=== PATIENT | female | born 2005 | race Two or more races ===

== ENCOUNTER 2024-02-23 13:28 | Emergency (ER) | payer MEDICAID, SELFPAY ==
[2024-02-23 13:29] VITALS: BMI 23.4
--- NOTE | 2024-02-23 14:22 | PC.NURSE ---
pt did not answer when name was called and was not found outside.
--- NOTE | 2024-02-23 17:38 | PC.NURSE ---
called pt back, no answer at this time
--- NOTE | 2024-02-23 19:00 | PC.NURSE ---
NO ANSWER FOR CALL BACK TO MAIN ED
== END 2024-02-23 19:06 | disposition left against medical advice (07) ==
PROVIDERS: Emergency Provider Emergency Medicine
DX: Z53.21 Procedure and treatment not carried out due to patient leaving prior to being seen by health care provider (principal)

== ENCOUNTER 2024-10-12 10:33 | Outpatient (AMB) | payer MEDICAID, SELFPAY ==
[2024-10-12 10:49] VITALS: BP 110/73; PULSE 81; RESP 17; TEMP 36.6; O2SAT 98; BMI 30.7
--- NOTE | 2024-10-12 10:49 | AMB.OBINITIA ---
Vital Signs 10/12/24 10:49 Height 1.42 m Height Method Measured Weight 62.199 kg Weight Measurement Method Standing Scale BMI 30.7 BP 110/73 Blood Pressure Source Automatic Cuff Blood Pressure Location Right Upper Arm Position Sitting Respiration 17 Pulse 81 Pulse Source Monitor Temp 97.9 F Temp Source Temporal Artery Scan Pulse Oximetry (%) 98 Oxygen Delivery Method Room Air Allergies/Home Meds Allergies & Medications Allergies No Known Allergies Allergy (Verified 10/12/24 10:50) Medication Reconciliation folic acid 0.8 mg capsule 0.8 mg PO QDAY 10/12/24 [History Confirmed 10/12/24] vits no.126-ferrous fum 28 mg iron-folic acid 800 mcg tablet (Classic ) tab PO 10/12/24 [History Confirmed 10/12/24] Intake Visit Data Collection New Patient or Established: Established Patient (seen at [facility] within 3 years) Reason for Visit:: OBI Consent obtained for Telemed Visit: No Seen by Clinical Staff ONLY (RN/MA): No Pneumatic Jack Operator Required: No Do You Feel Safe at Home: Yes Authorities Contacted: N/A PCP or OBGYN visit in last 3 months: No Hx Now: Yes Are you currently on any form of Control: No Pain Present Currently: No Pain Scale Used: Cruz-Mathews/Numerical Pain scale:: 0 Smoking Status Smoking Status: Never smoker Questionnaires Covid-19 Vaccine Questionnaire Has patient been vacinated for Covid-19 Have you been vacinated for Covid-19: No PHQ-9 PHQ-2 Over the last 2 weeks, how often have you been bothered by any of the following problems? 1. Little interest or pleasure in doing things: not at all 2. Feeling down, depressed, or hopeless: not at all Total score: 0 PHQ-9 3. Trouble falling or staying asleep, or sleeping too much: Not at all 4. Feeling tired or having little energy: Not at all 5. Poor appetite or overeating: Not at all 6. Feeling bad about yourself - or that you are a failure or have let yourself or your family down: Not at all 7. Trouble concentrating on things, such as reading the newspaper or watching television: Not at all 8. Moving or speaking so slowly that other people could have noticed? - Or the opposite - being so fidgety or restless that you have been moving around a lot more than usual: not at all 9. Thoughts that you would be better off or of hurting yourself in some way: Not at all Total score: 0 If you checked off any problems, how difficult have these problems made it for you to do your work, take care of things at home, or get along with other people?: not difficult at all Source: Developed by Drs. Ronnie Monzon, Shayy Acuña, Leonardo Marsh and colleagues, with an educational guy from [employer]. Social History Tobacco History Smoking Status: Never smoker Alcohol History Alcohol Intake: Never Domestic Abuse History Do You Feel Safe at Home: Yes History of Present Illness HPI Narrative This is a 19-year-old 2 para 1 admitted for OBI. Patient reports unplanned . She denies any leaking, bleeding, or cramps at this time. Her last. Was June 22, 2024. This gives a due date March 29, 2025. menses are q month. Her first was uncomplicated. Patient denies surgeries. Denies any existence of chronic illness. She denies social habits. She is very happy about the OB Initial Visit OB Flowsheet OB Flowsheet Initial Weight: Not Recorded Date <del>?</del> EGA Weight BP Alb Glu CTX Pres Fundal ht FHR Mov Dilation Station Effacement Hx Notes Visit Note 10/12/24 <del>?</del> 16w 0d 62.199 kg 110/73 absent unknown 15 145 active 19-year-old 2 para 1 for OBI. No OB complaints. Reports slight movement. Denies leaking, denies bleeding, denies contractions. Her last period was June 22, 2024. This gave a due date March 29, 2025. OB panel, NIPT, AFP, and A1c today. Discussed labor precautions. Schedule with MFM for anatomy scan. SAB precautions. Return in 4 weeks OB check Menstrual History Menstrual reliability: definite Flow: normal Menstrual regularity: regular Monthly: Yes Age at menarche: 11 On control pills at conception: No Details: PATIENT HAD NEXPLANON REMOVED BEFORE OB History : 2 Para: 1 Hx # Pregnancies: 0 Hx Total # of Abortions (Spontaneous & Elective): 0 # of Living Children: 1 Delivery History 1st : Child's name: WILLEM date: 11/07/19 sex: female Gestational age at delivery (weeks): 40 Delivery type: vaginal History of depression before or after : No Additional comments: PATIENT DOES NOT REMEMBER WEIGHT OF CHILD Infection History & Risk Evaluation History of STDs: none HIV risk evaluation: low risk Hepatitis B risk evaluation: low risk Patient or partner has history of Genital Herpes: No Genetic Screening & History Genetic Screening/Teratology Counseling - Includes patient, baby's father, or anyone in either family with: 1. Patient's age 35 years or older as of estimated date of delivery: No 2. Thalassemia (Greenlandic, Serbian, Mediterranean, or Background); MCV less than 80: No 3. Neural Tube Defect (Meningomyelocele, Spina Bifida, or Anencephaly): No 4. Congenital Heart Defect: No 5. Down Syndrome: No 6. Ketan-Sachs (Ashkenazi Orthodox, Cajun, Mauritanian [place]): No 7. Bety Disease (Ashkenazi Orthodox): No 8. Familial Dysautonomia (Ashkenazi Orthodox): No 9. Sickle Cell Disease or Trait (): No 10. Hemophilia or other blood disorders: No 11. Muscular Dystrophy: No 12. Cystic Fibrosis: No 13. [place]'s Chorea: No 14. Mental Retardation/Autism: No 15. Other inherited genetic or chromosomal disorder: No 16. Maternal Metabolic Disorder (EG,TYPE 1 Diabetes, PKU): No 17. Patient or baby's father had a child with defects not listed above: No 18. Recurrent loss or a stillbirth: No 19. Medications (including supplements, vitamins, herbs or otc drugs)/illicit/recreational drugs/alcohol since last menstrual period: No 20. Any other: No Infection History 1. Live with someone with TB or exposed to TB: No 2. Rash or viral illness since last menstrual period: No 3. Hepatitis B,C: No Other (see comments) Source: [employer] Review of Systems Review of Systems Systems Reviewed: All systems reviewed, normal except as documented Exam General Limitations: no limitations General Appearance: alert, in no apparent distress, comfortable, cooperative, healthy appearing, well developed and well groomed Head Head exam: atraumatic, normocephalic and normal inspection ENT ENT exam: Present normal exam, normal oropharynx and mucous membranes moist Resp Respiratory exam: Present normal lung sounds bilaterally Card Cardiovascular exam: Present regular rate, normal rhythm and normal heart sounds Abdominal Abdominal exam: Present soft and normal bowel sounds Psych Psychiatric exam: Present normal affect and normal mood Office Procedures OB Clinic LOC & Office Proc's Nursing/Assessment Patient Status: Established Patient OB Clinic Nursing Assessment: Medication Reconciliation, Update PMH in EMR and Vital Signs OB Clinic Coordination of Care: Complex Care and Chronic Disease 1-5, Consent,records obtained, informed consent and Lab and Imaging orders Special Needs: Heart tones Established Patient Charge Established Patient Point Assignment: 105 Established Patient Point Charge: EP Level 3 (80-115) Assessment & Plan Diagnosis / Problem List (1) Encounter for supervision of high risk in second trimester, antepartum: Status: Acute Plan Schedule anatomy scan with Dr. Marquez. OB panel with NIPT and AFP today. SAB precautions discussed. Increase fluids. Continue prenatals. ER precautions discussed return in 4 weeks OB check Additional Plan Follow Up: 4 Weeks (obc)
== END 2024-10-12 11:13 | disposition home or self-care (01) ==
LOC: HODSOBC 10:33
PROVIDERS: Supervising Provider Advanced Practice Midwife; Visit Provider Advanced Practice Midwife
DX: O09.92 Supervision of high risk pregnancy, unspecified, second trimester (principal); Z3A.16 16 weeks gestation of pregnancy
CPT/HCPCS: 99213; G0463

== ENCOUNTER 2024-10-28 08:10 | Emergency (ER) | payer MEDICAID, SELFPAY ==
[2024-10-28 08:21] VITALS: BP 123/85; PULSE 94; RESP 17; TEMP 37.2; O2SAT 98
--- NOTE | 2024-10-28 08:23 | XR_ITS ---
Examination: Complete OB ultrasound greater than 14 weeks Date and time of exam: October 28, 2024, 0837 hours INDICATIONS: Pelvic and back pain beginning today. Findings: Viable intrauterine single fetus with single amniotic sac presentation cephalic. Cardiac motion 155 BPM. Placenta posterior grade 2. Umbilical cord insertion 3 vessel seen. Amniotic fluid index 10.9 cm Cervix 4.4 cm Ovaries obscured by bowel gas. Composite estimated gestational age based on BPD, head circumference, abdominal circumference, femur length is 18 weeks 1 day Estimated weight 218 g. Survey of intracranial anatomy, spinal anatomy, abdominal anatomy, four-chamber heart performed with no abnormalities identified. Impression: Viable intrauterine gestation cephalic presentation.
[2024-10-28 09:09] LABS: Collection Type, Urine Clean Catch; RBC,Urine 0 /hpf (0-3)
[2024-10-28 09:27] LABS: Bacteria,Urine Rare; Bilirubin,Urine Negative (Negative); Blood,Urine Negative (Negative); Color,Urine Lt-Yellow (Lt Yel-Yel); Glucose, Urine Negative (Negative); Ketones,Urine Negative (Negative); Leukocyte Esterase,Urine Positive (Negative); Nitrite,Urine Negative (Negative); PH,Urine 6.5 (5.0-7.0); Protein,Urine Negative (Neg - Trace); Specific Gravity,Urine 1.016 (1.001-1.035); Squamous Epithelial Cell,Urine 4 /hpf (0-5); Urobilinogen,Urine Negative mg/dL (0.0-1.0); WBC,Urine 7 /hpf (0-5)
[2024-10-28 09:31] LABS: Clarity,Urine Hazy (Clear/Hazy)
[2024-10-28 09:49] LABS: Basophils # (Auto) 0.0 Thou/mm3 (0.0-0.2); Basophils % (Auto) 0 % (0-2.5); Eosinophils # (Auto) 0.1 Thou/mm3 (0.0-0.5); Eosinophils % (Auto) 1 % (0-10); Hematocrit 34.1 % (36.0-46.0); Hemoglobin 12.1 g/dL (12.0-16.0); Immature Granulocytes Auto 0.05 Thou/mm3 (0.00-0.00); Lymphocytes # (Auto) 1.5 Thou/mm3 (1.0-4.8); Lymphocytes % (Auto) 15 % (10-50); Mean Corpuscular HGB Conc 35.5 g/dl (31.0-37.0); Mean Corpuscular Hemoglobin 29.8 pg (25.0-35.0); Mean Corpuscular Volume 84 fL (80-100); Monocytes # (Auto) 0.5 Thou/mm3 (0.0-0.8); Monocytes % (Auto) 4 % (0-12); Neutrophils # (Auto) 8.2 Thou/mm3 (1.8-7.7); Neutrophils % (Auto) 80 % (37-80); Nucleated Red Blood Cell # 0.00 Thou/mm3 (0.00-0.00); Nucleated Red Blood Cell % 0 /100 WBC (0); Platelet Count 261 Thou/mm3 (140-440); RDW Standard Deviation 42.3 fL (36.4-46.3); Red Blood Count 4.06 Miln/mm3 (4.00-5.20); White Blood Count 10.4 Thou/mm3 (4.5-11.0)
[2024-10-28 10:29] LABS: Alanine Aminotransferase 19 U/L (10-49); Albumin, Serum 3.7 gm/dL (3.5-5.0); Albumin/Globulin Ratio 1.5 (1.2-2.2); Alkaline Phosphatase 88 U/L (46-116); Amylase 122 U/L (30-118); Anion Gap 9 (7-16); Aspartate Amino Transferase 19 U/L (0-34); BUN/Creatinine Ratio 10 Ratio (12-20); Bilirubin,Total 0.3 mg/dL (0.3-1.2); Blood Urea Nitrogen < 5 mg/dL (9-23); Calcium 8.9 mg/dL (8.3-10.6); Calcium (Corrected) 9.1 mg/dL (8.5-10.1); Carbon Dioxide 24.3 mMol/L (20.0-31.0); Chloride 106 mMol/L (98-107); Creatinine (Component) 0.5 mg/dL (0.6-1.3); Globulin 2.5 gm/dL (2.3-3.5); Glucose 92 mg/dL (74-106); Osmolality,Calculated 274 (275-295); Potassium 4.2 mMol/L (3.4-5.1); Sodium 139 mMol/L (136-145); Total Protein 6.2 gm/dL (5.7-8.2); eGFR > 60 See Note
[2024-10-28 11:31] LABS: Beta HCG,Quantitative 49995 mIU/mL (<5.0); Lipase 25 U/L (12-53)
--- NOTE | 2024-10-28 12:53 | PD.EDABDPN ---
ED Abdominal Pain RME/HPI General Chief Complaint: Abdominal Pain Stated complaint: PAIN IN BACK/ABD; PREG 18WKS Time seen by provider: 10/28/24 08:15 Arrival date/time: 10/28/24 08:10 19-year-old female with no significant medical problems A0 approximately 18 weeks presents to the emergency department today for complaints of lower back pain and pelvic pain patient reports no vaginal bleeding no nausea no vomiting no diarrhea. Limitations: no limitations Related Data Home Medications ?Medication ?Instructions ?Recorded ?Confirmed folic acid 0.8 mg capsule 0.8 mg PO QDAY 10/12/24 10/12/24 vits no.126-ferrous fum tab PO 10/12/24 10/12/24 28 mg iron-folic acid 800 mcg tablet (Classic ) Previous Rx's ?Medication ?Instructions ?Recorded acetaminophen 325 mg capsule 650 mg (2 x 325 mg) PO Q8HR PRN 10/28/24 fever or pain #30 caps cephalexin 500 mg capsule 500 mg PO BID 5 days #10 caps 10/28/24 Allergies Allergy/AdvReac Type Severity Reaction Status Date / Time No Known Allergies Allergy Verified 10/12/24 10:50 Review of Systems Review of Systems Systems Reviewed: All systems reviewed, normal except as documented Constitutional Constitutional: Reports system reviewed and no additional complaints, except as documented, Denies fever(s) and Denies headache(s) Eyes Eyes: Reports system reviewed and no additional complaints, except as documented and Denies blurry vision ENT Ears, Nose, Mouth, and Throat: Reports system reviewed and no additional complaints, except as documented, Denies headache(s), Denies nasal congestion and Denies nasal discharge Cardiovascular Cardiovascular: Reports system reviewed and no additional complaints, except as documented, Denies chest pain and Denies dyspnea Respiratory Respiratory: Reports system reviewed and no additional complaints, except as documented, Denies chest congestion, Denies cough and Denies dyspnea Gastrointestinal Gastrointestinal: Reports system reviewed and no additional complaints, except as documented and Denies abdominal pain Genitourinary Genitourinary: Reports system reviewed and no additional complaints, except as documented and Denies abnormal vaginal bleeding Musculoskeletal Musculoskeletal: Reports system reviewed and no additional complaints, except as documented and Reports back pain Integumentary/Breasts Skin/Breast: Reports system reviewed and no additional complaints, except as documented and Denies rash Neurologic Neurologic: Reports system reviewed and no additional complaints, except as documented, Reports as per HPI and Denies headache(s) Past Medical History Social History SMOKING STATUS: Never smoker SUBSTANCE USE: does not use ED Exam General Limitations: Present no limitations General appearance: Present alert and in no apparent distress Head Head exam: Present atraumatic, normocephalic and normal inspection Eye Eye exam: Present normal appearance, PERRL and EOMI; Absent conjunctival injection ENT ENT exam: Present normal exam, normal oropharynx and mucous membranes moist Neck Neck exam: Present normal inspection, full ROM and trachea midline Chest Chest inspection: Present normal inspection and symmetric chest wall rise Respiratory Respiratory exam: Present normal lung sounds bilaterally; Absent respiratory distress Cardiovascular Cardiovascular exam: Present regular rate, normal rhythm and normal heart sounds Abdominal Exam Abdominal exam: Present soft and normal bowel sounds; Absent distention, tenderness, guarding, rebound or rigidity Extremities Exam Extremities exam: Present normal inspection and full ROM Back Exam Back exam: Present normal inspection and full ROM Neurological Exam Neurological exam: Present alert, oriented X3 and CN II-XII intact Psychiatric Psychiatric exam: Present normal affect and normal mood Skin Skin exam: Present warm, dry, intact and normal color Course Quality Measures none Orders Category Date Time Status US OB >= 14 weeks Fetus Stat Exams 10/28/24 08:23 Completed ABO/RH Type Stat Lab 10/28/24 09:37 Completed Amylase Stat Lab 10/28/24 09:37 Completed Beta HCG,Quantitative Stat Lab 10/28/24 09:37 Completed CBC Stat Lab 10/28/24 09:37 Completed Comprehensive Metabolic Panel Stat Lab 10/28/24 09:37 Completed Lipase Stat Lab 10/28/24 09:37 Completed UA [Urinalysis] Stat Lab 10/28/24 08:42 Completed Vital Signs Vital signs: Vital Signs Temperature 99.0 F 10/28/24 08:21 Pulse Rate 94 10/28/24 08:21 Respiratory Rate 17 10/28/24 08:21 Blood Pressure 123/85 H 10/28/24 08:21 Pulse Oximetry (%) 98 10/28/24 08:21 Oxygen Delivery Method Room Air 10/28/24 08:21 O2 saturation 98% r.a wnl Abdominal Pain MDM MDM Narrative MDM Narrative:: 19-year-old female with no significant medical problems A0 approximately 18 weeks presents to the emergency department today for complaints of lower back pain and pelvic pain patient reports no vaginal bleeding no nausea no vomiting no diarrhea. On exam patient well-appearing patient does not appear ill or toxic no acute stress Lab work and imaging obtained no acute emergent findings noted As patient is complaining of lower back pain and patient does have leukocyte esterase with bacteria in her urine patient be treated with course of antibiotics Patient discharged home in no distress to follow-up with primary care doctor in the next 24 to 48 hours and for any worsening symptoms to return to the ER immediately Patient data External records reviewed:: [facility] previous records Clinical information provided by:: patient Social determinants that could affect healthcare access:: none Patient has the following chronic illnesses:: None How is presenting disease/condition affected by chronic disease/condition?: no chronic disease Evaluation data The following diagnostics were reviewed and interpreted by me:: lab results and radiology exam(s) Lab and/or radiology exams considered but not ordered:: Labs radiology obtained Interpretation Summary: Reviewed by me Medications / Prescriptions Medications or Prescriptions considered but not ordered:: Given Medication administrations:: Given Consultations Consultation(s) initiated? (list below): No Diagnosis Differential diagnosis abdominal pain: abdominal pain, acute appendicitis, pancreatitis and small bowel obstruction Most likely diagnosis given after review of the tests above:: Abdominal pain Admission Indicated Admission indicated?: not indicated Admission Request Was there a request for admission?: No Disposition Plan Disposition Plan: Discharge Discharge Attestation Discharge Attestation: The patient and all family members were given an opportunity to ask questions and understood the discharge instructions. Discharge instructions specifically effects, indications for sooner follow up or return to the emergency department, and the expected course of current diagnosis. Patient condition: Stable Discharge Plan Plan Patient Disposition: HOME (Self Care) Discharge Disposition comment: Stable Prescriptions/Referrals Prescriptions/Med Rec: New cephalexin 500 mg capsule 500 mg PO BID 5 Days Qty: 10 0RF acetaminophen 325 mg capsule 650 mg PO Q8HR PRN (Reason: fever or pain) Qty: 30 0RF No Action Classic 28 mg iron- 800 mcg tablet PO folic acid 0.8 mg capsule 0.8 mg PO QDAY Referrals: Kahlil Livingston MD [Primary Care Provider, Family Practice] - 10/30/24 Problem List Clinical Impression: Back pain affecting Patient/Caregiver Discharge Instructions Education Materials: Back Safety Bed Additional Instructions: Please follow-up with WET PRIMER POWDER BLENDER as discussed for worsening symptoms return immediately Print Language: Yakut Stand Alone Forms: Hermelinda Award Info., Patient Portal Info Letter PA/FRONT LOAD TRASH TRUCK DRIVER Supervising Physician PA/FRONT LOAD TRASH TRUCK DRIVER Supervising Physician: Dr. mendoza
== END 2024-10-28 13:29 | disposition home or self-care (01) ==
PROVIDERS: Nurse Practitioner Primary Care; Emergency Provider Emergency Medicine; PCP Family Medicine
DX: O26.892 Other specified pregnancy related conditions, second trimester (principal); M54.50 Low back pain, unspecified; R10.2 Pelvic and perineal pain; Z3A.18 18 weeks gestation of pregnancy
CPT/HCPCS: 36415; 76805; 80053; 81001; 82150; 83690; 84702; 85025; 86900; 86901; 99283

== ENCOUNTER 2024-11-16 15:04 | Outpatient (AMB) | payer MEDICAID, SELFPAY ==
[2024-11-16 16:07] VITALS: BP 108/70; PULSE 94; RESP 16; TEMP 36.2; O2SAT 98; BMI 31.1
--- NOTE | 2024-11-16 16:07 | AMB.OBVISIT ---
Vital Signs 11/16/24 16:07 Height 1.42 m Height Method Stated Weight 62.766 kg Weight Measurement Method Standing Scale BMI 31.1 BP 108/70 Blood Pressure Source Automatic Cuff Blood Pressure Location Left Upper Arm Position Sitting Respiration 16 Pulse 94 Pulse Source Monitor Temp 97.2 F Temp Source Oral Pulse Oximetry (%) 98 Oxygen Delivery Method Room Air Allergies/Home Meds Allergies & Medications Allergies No Known Allergies Allergy (Verified 11/16/24 16:08) Medication Reconciliation folic acid 0.8 mg capsule 0.8 mg PO QDAY 10/12/24 [History Confirmed 11/16/24] vits no.126-ferrous fum 28 mg iron-folic acid 800 mcg tablet (Classic ) tab PO 10/12/24 [History Confirmed 11/16/24] acetaminophen 325 mg capsule 650 mg (2 x 325 mg) PO Q8HR PRN fever or pain #30 caps 10/28/24 [Rx Confirmed 11/16/24] Intake Visit Data Collection New Patient or Established: Established Patient (seen at [facility] within 3 years) Reason for Visit:: OBC Seen by Clinical Staff ONLY (RN/MA): No Frame Pulley Mortising Machine Operator Required: No Do You Feel Safe at Home: Yes Authorities Contacted: N/A PCP or OBGYN visit in last 3 months: Yes Date of Last PCP or OBGYN visit: 10/28/24 Hx Now: Yes Are you currently on any form of Control: No Pain Present Currently: No Pain Scale Used: Cruz-Mathews/Numerical Pain scale:: 0 Smoking Status Smoking Status: Never smoker Questionnaires Covid-19 Vaccine Questionnaire Has patient been vacinated for Covid-19 Have you been vacinated for Covid-19: Yes PHQ-9 PHQ-2 Over the last 2 weeks, how often have you been bothered by any of the following problems? 1. Little interest or pleasure in doing things: not at all 2. Feeling down, depressed, or hopeless: not at all Total score: 0 PHQ-9 3. Trouble falling or staying asleep, or sleeping too much: Not at all 4. Feeling tired or having little energy: Not at all 5. Poor appetite or overeating: Not at all 6. Feeling bad about yourself - or that you are a failure or have let yourself or your family down: Not at all 7. Trouble concentrating on things, such as reading the newspaper or watching television: Not at all 8. Moving or speaking so slowly that other people could have noticed? - Or the opposite - being so fidgety or restless that you have been moving around a lot more than usual: not at all 9. Thoughts that you would be better off or of hurting yourself in some way: Not at all Total score: 0 If you checked off any problems, how difficult have these problems made it for you to do your work, take care of things at home, or get along with other people?: not difficult at all Source: Developed by Drs. Ronnie Monzon, Shayy Acuña, Leonardo Marsh and colleagues, with an educational guy from [employer]. Depression screen completed yes Social History Tobacco History Smoking Status: Never smoker Alcohol History Alcohol Intake: Never Domestic Abuse History Do You Feel Safe at Home: Yes Care OB Visit Log OB Flowsheet Initial Weight: Not Recorded Date <del>?</del> EGA Weight BP Alb Glu CTX Pres Fundal ht FHR Mov Dilation Station Effacement Hx Notes Visit Note 10/12/24 <del>?</del> 16w 0d 62.199 kg 110/73 absent unknown 15 145 active 19-year-old 2 para 1 for OBI. No OB complaints. Reports slight movement. Denies leaking, denies bleeding, denies contractions. Her last period was June 22, 2024. This gave a due date March 29, 2025. OB panel, NIPT, AFP, and A1c today. Discussed labor precautions. Schedule with [facility] for anatomy scan. SAB precautions. Return in 4 weeks OB check 11/16/24 <del>?</del> 21w 0d 62.766 kg 108/70 absent unknown 23 145 active Maternal- medicine pending. Fetus very active. Denies any existence of contractions. Denies leaking, denies bleeding, Discussed labs. Follow-up in maternal- medicine appointment. Discussed labor precautions. Return in 4 weeks OB check JACQUES Calculator Estimated Delivery Date Method Current WG Current Estimate 03/29/25 LMP (Certain) 21w 0d Notes Visit Date: 11/16/24 Last Updated by: Acacia Nolasco CNM 10/12: O+,abs-, rpr;;nr, rub imm, hbsag-,hiv-, HC-, GC/CT-, , NIPT-, AFP-, SMA-UT-,UA- Visit Date: 10/12/24 Last Updated by: Acacia Nolasco CNM 19 y0 . lmp: 06/22/24. EDC. 03/29/25 Office Procedures OBC Clinic LOC & Office Proc's Nursing/Assessment Patient Status: Established Patient OB Clinic Nursing Assessment: Medication Reconciliation, Update PMH in EMR and Vital Signs OB Clinic Coordination of Care: Education Complex Pt/Fam, Consent,records obtained, informed consent, Lab and Imaging orders, Results/Orders obtained and Staff clarify orders Special Needs: Heart tones Established Patient Charge Established Patient Point Assignment: 115 Established Patient Point Charge: EP Level 3 (80-115) Assessment & Plan Diagnosis / Problem List (1) Encounter for supervision of high risk in second trimester, antepartum: Status: Acute Plan Reviewed labs. Discussed labor precautions. Follow-up on maternal- medicine appointment. And return in 4 weeks OB check Additional Plan Follow Up: 4 Weeks (obc)
== END 2024-11-16 16:46 | disposition home or self-care (01) ==
LOC: HODSOBC 15:04
PROVIDERS: Supervising Provider Advanced Practice Midwife; Visit Provider Advanced Practice Midwife
DX: O09.92 Supervision of high risk pregnancy, unspecified, second trimester (principal); Z3A.21 21 weeks gestation of pregnancy
CPT/HCPCS: 99213; G0463

== ENCOUNTER 2024-12-17 08:54 | Outpatient (AMB) | payer MEDICAID, SELFPAY ==
[2024-12-17 08:56] VITALS: PULSE 95; RESP 18; TEMP 36.6; O2SAT 98; BMI 33.1
--- NOTE | 2024-12-17 08:56 | OBCLNT_ITS ---
Vital Signs 12/17/24 08:56 Height 1.42 m Height Method Stated Weight 66.905 kg Weight Measurement Method Standing Scale BMI 33.1 Blood Pressure Source Automatic Cuff Blood Pressure Location Left Upper Arm Position Sitting Respiration 18 Pulse 95 Pulse Source Monitor Temp 98 F Temp Source Oral Pulse Oximetry (%) 98 Oxygen Delivery Method Room Air Allergies/Home Meds Allergies & Medications Allergies No Known Allergies Allergy (Verified 12/17/24 09:07) Medication Reconciliation vits no.126-ferrous fum 28 mg iron-folic acid 800 mcg tablet (Classic ) tab PO 10/12/24 [History Confirmed 12/17/24] folic acid 0.8 mg capsule 0.8 mg PO QDAY #60 caps 12/17/24 [Rx] Intake Visit Data Collection New Patient or Established: Established Patient (seen at [facility] within 3 years) Reason for Visit:: CARE Seen by Clinical Staff ONLY (RN/MA): No Health Careers Instructor Required: Yes Do You Feel Safe at Home: Yes Authorities Contacted: N/A PCP or OBGYN visit in last 3 months: Yes Hx Now: Yes Are you currently on any form of Control: No Pain Present Currently: No Pain Scale Used: Cruz-Mathews/Numerical Pain scale:: 0 Smoking Status Smoking Status: Never smoker Immunizations Flu Vaccine in the Last 12 Months: Yes Flu Vaccine Exclusion Criteria: Already Received Questionnaires Covid-19 Vaccine Questionnaire Has patient been vacinated for Covid-19 Have you been vacinated for Covid-19: No PHQ-9 PHQ-2 Over the last 2 weeks, how often have you been bothered by any of the following problems? 1. Little interest or pleasure in doing things: not at all 2. Feeling down, depressed, or hopeless: not at all Total score: 0 PHQ-9 3. Trouble falling or staying asleep, or sleeping too much: Not at all 4. Feeling tired or having little energy: Not at all 5. Poor appetite or overeating: Not at all 6. Feeling bad about yourself - or that you are a failure or have let yourself or your family down: Not at all 7. Trouble concentrating on things, such as reading the newspaper or watching television: Not at all 8. Moving or speaking so slowly that other people could have noticed? - Or the opposite - being so fidgety or restless that you have been moving around a lot more than usual: not at all 9. Thoughts that you would be better off or of hurting yourself in some way: Not at all Total score: 0 Source: Developed by Drs. Ronnie Monzon, Shayy Acuña, Leonardo Marsh and colleagues, with an educational guy from [employer]. Depression screen completed yes Social History Living Situation History Marital Status: Lives With: Family Housing: House Tobacco History Smoking Status: Never smoker Second Hand Smoke Exposure: No Alcohol History Alcohol Intake: Never Domestic Abuse History Do You Feel Safe at Home: Yes Care OB Visit Log OB Flowsheet Initial Weight: Not Recorded Date -?-?-?-?-?-?-?-?-?-?-?-?- EGA Weight BP Alb Glu CTX Pres Fundal ht FHR Mov Dilation Station Effacement Hx Notes Visit Note 10/12/24 -?-?-?-?-?-?-?-?-?-?-?-?- 16w 0d 62.199 kg 110/73 absent unknown 15 145 active 19-year-old 2 para 1 for OBI. No OB complaints. Reports slight movement. Denies leaking, denies bleeding, denies contractions. Her last period was June 22, 2024. This gave a due date March 29, 2025. OB panel, NIPT, AFP, and A1c today. Discussed labor precautions. Schedule with MFM for anatomy scan. SAB precautions. Return in 4 weeks OB check 11/16/24 -?-?-?-?-?-?-?-?-?-?-?-?- 21w 0d 62.766 kg 108/70 absent unknown 23 145 active Maternal- medicine pending. Fetus very active. Denies any existence of contractions. Denies leaking, denies bleeding, Discussed labs. Follow-up in maternal- medicine appointment. Discussed labor precautions. Return in 4 weeks OB check 12/17/24 -?-?-?-?-?-?-?-?-?-?-?-?- 25w 3d 66.905 kg absent unknown 26 135 act sharad MFM appointment is January 18. Reports movement. Patient had a general physical at [facility].. Her vitamin D is low and she was given vitamin D supplement. Patient positive antibodies for hepatitis A. Hep B and hep C were nonreactive and her CMP normal as well. Reports movement. Denies leaking bleeding contractions. No second trimester discomforts Third trimester labs today follow-up [facility] January 18. Discussed labor precautions increase fluids good handwashing especially after using the restroom and preparing food. And return in 4 weeks for OB check JACQUES Calculator Estimated Delivery Date Method Current WG Current Estimate 03/29/25 LMP (Certain) 25w 3d Notes Visit Date: 11/16/24 Last Updated by: Acacia Nolasco CNM 10/12: O+,abs-, rpr;;nr, rub imm, hbsag-,hiv-, HC-, GC/CT-, , NIPT-, AFP-, SMA-UT-,UA- Visit Date: 10/12/24 Last Updated by: Acacia Nolasco CNM 19 y0 . lmp: 06/22/24. EDC. 03/29/25 Office Procedures OBC Clinic LOC & Office Proc's Nursing/Assessment Patient Status: Established Patient OB Clinic Nursing Assessment: Medication Reconciliation, Update PMH in EMR and Vital Signs OB Clinic Coordination of Care: Complex Care and Chronic Disease 1-5, Consent,records obtained, informed consent, Education Simp Pt/Fam, Lab and Imaging orders, Results/Orders obtained and Staff clarify orders Special Needs: Heart tones Established Patient Charge Established Patient Point Assignment: 135 Established Patient Point Charge: EP Level 4 (120-155) Assessment & Plan Diagnosis / Problem List (1) Encounter for supervision of high risk in second trimester, antepartum: Status: Acute Plan Refill folic acid. Continue prenatals. Discussed good handwashing especially after using the restroom and preparing food. Because of positive hep A. Third trimester labs ordered. Discussed labor precautions. Follow-up [facility] January 18. Return in 4 weeks OB check Additional Plan Follow Up: 4 Weeks (obc)
== END 2024-12-17 09:41 | disposition home or self-care (01) ==
LOC: HODSOBC 08:54
PROVIDERS: Supervising Provider Advanced Practice Midwife; Visit Provider Advanced Practice Midwife
DX: O09.892 Supervision of other high risk pregnancies, second trimester (principal); O98.412 Viral hepatitis complicating pregnancy, second trimester; B15.9 Hepatitis A without hepatic coma; Z3A.25 25 weeks gestation of pregnancy
CPT/HCPCS: 99214; G0463

== ENCOUNTER 2025-01-13 09:48 | Outpatient (AMB) | payer MEDICAID, SELFPAY ==
[2025-01-13 10:10] VITALS: BP 106/68; PULSE 89; RESP 18; TEMP 36.7; O2SAT 98; BMI 34.0
--- NOTE | 2025-01-13 10:10 | OBCLNT_ITS ---
Vital Signs 01/13/25 10:10 Height 1.42 m Height Method Stated Weight 68.606 kg Weight Measurement Method Standing Scale BMI 34.0 BP 106/68 Blood Pressure Source Automatic Cuff Blood Pressure Location Right Upper Arm Position Sitting Respiration 18 Pulse 89 Pulse Source Monitor Temp 98.1 F Temp Source Temporal Artery Scan Pulse Oximetry (%) 98 Oxygen Delivery Method Room Air Allergies/Home Meds Allergies & Medications Allergies No Known Allergies Allergy (Verified 01/13/25 10:11) Medication Reconciliation vits no.126-ferrous fum 28 mg iron-folic acid 800 mcg tablet (Classic ) tab PO 10/12/24 [History Confirmed 01/13/25] folic acid 0.8 mg capsule 0.8 mg PO QDAY #60 caps 12/17/24 [Rx Confirmed 01/13/25] Immunizations Immunizations Flu Vaccine in the Last 12 Months: No Flu Vaccine Exclusion Criteria: No Exclusion Criteria Care OB Visit Log OB Flowsheet Initial Weight: Not Recorded Date -?-?-?-?-?-?-?-?-?-?-?-?- EGA Weight BP Alb Glu CTX Pres Fundal ht FHR Mov Dilation Station Effacement Hx Notes Visit Note 10/12/24 -?-?-?-?-?-?-?-?-?-?-?-?- 16w 0d 62.199 kg 110/73 absent unknown 15 145 active 19-year-old 2 para 1 for OBI. No OB complaints. Reports slight movement. Denies leaking, denies bleeding, denies contractions. Her last period was June 22, 2024. This gave a due date March 29, 2025. OB panel, NIPT, AFP, and A1c today. Discussed labor precautions. Schedule with M for anatomy scan. SAB precautions. Return in 4 weeks OB check 11/16/24 -?-?-?-?-?-?-?-?-?-?-?-?- 21w 0d 62.766 kg 108/70 absent unknown 23 145 active Maternal- medicine pending. Fetus very active. Denies any existence of contractions. Denies leaking, denies bleeding, Discussed labs. Follow-up in maternal- medicine appointment. Discussed labor precautions. Return in 4 weeks OB check 12/17/24 -?-?-?-?-?-?-?-?-?-?-?-?- 25w 3d 66.905 kg absent unknown 26 135 act sharad MFM appointment is January 18. Reports movement. Patient had a general physical at [facility].. Her vitamin D is low and she was given vitamin D supplement. Patient positive antibodies for hepatitis A. Hep B and hep C were nonreactive and her CMP normal as well. Reports movement. Denies leaking bleeding contractions. No second trimester discomforts Third trimester labs today follo w-up MFM January 18. Discussed labor precautions increase fluids good handwashing especially after using the restroom and preparing food. And return in 4 weeks for OB check 01/13/25 -?-?-?-?-?-?-?-?-?-?-?-?- w 2d 68.606 kg 106/68 absent unknown 29 135 active No OB complaints. Reports movement. Denies leaking, bleeding, contractions Tdap today. Third trimester labs were done. Discussed labor precautions. Keep appointment on 18 January with maternal- medicine return in 3 weeks OB check JACQUES Calculator Estimated Delivery Date Method Current WG Current Estimate 03/29/25 LMP (Certain) 29w 2d Notes Visit Date: 01/13/25 Last Updated by: Acacia Nolasco CNM 01/12: 3rd tri lab wnl, , A1: 4.9 Visit Date: 11/16/24 Last Updated by: Acacia Nolasco CNM 10/12: O+,abs-, rpr;;nr, rub imm, hbsag-,hiv-, HC-, GC/CT-, , NIPT-, AFP-, SMA-UT-,UA- Visit Date: 10/12/24 Last Updated by: Acacia Nolasco CNM 19 y0 . lmp: 06/22/24. EDC. 03/29/25 Office Procedures OBC Clinic LOC & Office Proc's Nursing/Assessment Patient Status: Established Patient OB Clinic Nursing Assessment: Medication Reconciliation, Update PMH in EMR and Vital Signs OB Clinic Coordination of Care: Complex Care and Chronic Disease 1-5, Education Complex Pt/Fam, Consent,records obtained, informed consent, Lab and Imaging orders, Results/Orders obtained and Staff clarify orders Special Needs: Heart tones Established Patient Charge Established Patient Point Assignment: 140 Established Patient Point Charge: EP Level 4 (120-155) Injection/Vaccine Admin SQ Im Injection: Yes Immunizations diphth,pertus(acell),tetanus 2.5 Lf unit-8 mcg-5 Lf/0.5mL IM syringe Performing Provider: Acacia Nolasco CNM Performing Location: [facility] Administered by: Jessica Chu MA on 01/13/25 14:29 Dose Route Admin Location Dispensed Lot Number Expiration Date Pack age [facility] [place] 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
== END 2025-01-13 10:48 | disposition home or self-care (01) ==
LOC: HODSOBC 09:48
PROVIDERS: Supervising Provider Advanced Practice Midwife; Visit Provider Advanced Practice Midwife
DX: Z34.83 Encounter for supervision of other normal pregnancy, third trimester (principal); Z3A.29 29 weeks gestation of pregnancy; Z23 Encounter for immunization
CPT/HCPCS: 90471; 90715; 96372; 99214; G0463

== ENCOUNTER 2025-01-29 11:11 | Outpatient (AMB) | payer MEDICAID, SELFPAY ==
[2025-01-29 11:19] VITALS: BP 109/70; PULSE 97; RESP 18; TEMP 36.4; O2SAT 95; BMI 34.8
--- NOTE | 2025-01-29 11:19 | OBCLNT_ITS ---
Vital Signs 01/29/25 11:19 Height 1.42 m Height Method Stated Weight 70.307 kg Weight Measurement Method Standing Scale BMI 34.8 BP 109/70 Blood Pressure Source Automatic Cuff Blood Pressure Location Right Upper Arm Position Sitting Respiration 18 Pulse 97 Pulse Source Monitor Temp 97.6 F Temp Source Temporal Artery Scan Pulse Oximetry (%) 95 Oxygen Delivery Method Room Air Allergies/Home Meds Allergies & Medications Allergies No Known Allergies Allergy (Verified 01/29/25 11:20) Medication Reconciliation vits no.126-ferrous fum 28 mg iron-folic acid 800 mcg tablet (Classic ) tab PO 10/12/24 [History Confirmed 01/29/25] folic acid 0.8 mg capsule 0.8 mg PO QDAY #60 caps 12/17/24 [Rx Confirmed 01/29/25] Immunizations Immunizations Flu Vaccine in the Last 12 Months: No Flu Vaccine Exclusion Criteria: No Exclusion Criteria Care OB Visit Log OB Flowsheet Initial Weight: Not Recorded Date -?-?-?-?-?-?-?-?-?-?-?-?- EGA Weight BP Alb Glu CTX Pres Fundal ht FHR Mov Dilation Station Effacement Hx Notes Visit Note 10/12/24 -?-?-?-?-?-?-?-?-?-?-?-?- 16w 0d 62.199 kg 110/73 absent unknown 15 145 active 19-year-old 2 para 1 for OBI. No OB complaints. Reports slight movement. Denies leaking, denies bleeding, denies contractions. Her last period was June 22, 2024. This gave a due date March 29, 2025. OB panel, NIPT, AFP, and A1c today. Discussed labor precautions. Schedule with [facility] for anatomy scan. SAB precautions. Return in 4 weeks OB check 11/16/24 -?-?-?-?-?-?-?-?-?-?-?-?- 21w 0d 62.766 kg 108/70 absent unknown 23 145 active Maternal- medicine pending. Fetus very active. Denies any existence of contractions. Denies leaking, denies bleeding, Discussed labs. Follow-up in maternal- medicine appointment. Discussed labor precautions. Return in 4 weeks OB check 12/17/24 -?-?-?-?-?-?-?-?-?-?-?-?- 25w 3d 66.905 kg absent unknown 26 135 act sharad M appointment is January 18. Reports movement. Patient had a general physical at [facility].. Her vitamin D is low and she was given vitamin D supplement. Patient positive antibodies for hepatitis A. Hep B and hep C were nonreactive and her CMP normal as well. Reports movement. Denies leaking bleeding contractions. No second trimester discomforts Third trimester labs today follo w-up MFM January 18. Discussed labor precautions increase fluids good handwashing especially after using the restroom and preparing food. And return in 4 weeks for OB check 01/13/25 -?-?-?-?-?-?-?-?-?-?-?-?- 29w 2d 68.606 kg 106/68 absent unknown 29 135 active No OB complaints. Reports movement. Denies leaking, bleeding, contractions Tdap today. Third trimester labs were done. Discussed labor precautions. Keep appointment on 18 January with maternal- medicine return in 3 weeks OB check 01/29/25 -?-?-?-?-?-?-?-?-?-?-?-?- 31w 4d 70.307 kg 109/70 absent unknown 32 145 active no ob complaints. fetus active. no leaking,bleeding or contractions. Discussed labor precautions. Kick count twice a day. Increase fluids. Continue prenatals. Discussed dates. Return in 2 weeks OB check JACQUES Calculator Estimated Delivery Date Method Current WG Current Estimate 03/29/25 LMP (Certain) 31w 4d Other Estimates 03/26/25 Ultrasound #1 32w 0d 03/29/25 Manual 31w 4d final jacques: ,efw:33% Notes Visit Date: 01/13/25 Last Updated by: Acacia Nolasco CNM 01/12: 3rd tri lab wnl, , A1: 4.9 Visit Date: 11/16/24 Last Updated by: Acacia Nolasco CNM 10/12: O+,abs-, rpr;;nr, rub imm, hbsag-,hiv-, HC-, GC/CT-, , NIPT-, AFP-, SMA-UT-,UA- Visit Date: 10/12/24 Last Updated by: Acacia Nolasco, OPAL 19 y0 . lmp: 06/22/24. EDC. 03/29/25 Office Procedures OBC Clinic LOC & Office Proc's Nursing/Assessment Patient Status: Established Patient OB Clinic Nursing Assessment: Medication Reconciliation, Update PMH in EMR and Vital Signs OB Clinic Coordination of Care: Complex Care and Chronic Disease 1-5, Education Complex Pt/Fam, Consent,records obtained, informed consent, Lab and Imaging orders, Results/Orders obtained and Staff clarify orders Special Needs: Heart tones Established Patient Charge Established Patient Point Assignment: 140 Established Patient Point Charge: EP Level 4 (120-155) Assessment & Plan Diagnosis / Problem List (1) Cholestasis during in second trimester: Status: Acute (2) Encounter for supervision of high risk in third trimester, antepartum: Status: Acute Plan Discussed labor precautions. Kick count twice a day. Continue prenatals. Increase fluids. Return in 2 weeks OB check Additional Plan Follow Up: 2 Weeks (obc)
== END 2025-01-29 11:52 | disposition home or self-care (01) ==
LOC: HODSOBC 11:11
PROVIDERS: Supervising Provider Advanced Practice Midwife; Visit Provider Advanced Practice Midwife
DX: O09.893 Supervision of other high risk pregnancies, third trimester (principal); O26.643 Intrahepatic cholestasis of pregnancy, third trimester; Z3A.31 31 weeks gestation of pregnancy
CPT/HCPCS: 99214; G0463

== ENCOUNTER 2025-02-17 11:20 | Outpatient (AMB) | payer MEDICAID, SELFPAY ==
[2025-02-17 11:30] VITALS: BP 116/73; PULSE 101; RESP 18; TEMP 36.2; O2SAT 98; BMI 35.8
--- NOTE | 2025-02-17 11:30 | OBCLNT_ITS ---
Vital Signs 02/17/25 11:30 Height 1.42 m Height Method Stated Weight 72.178 kg Weight Measurement Method Standing Scale BMI 35.8 BP 116/73 Blood Pressure Source Automatic Cuff Blood Pressure Location Left Upper Arm Position Sitting Respiration 18 Pulse 101 H Pulse Source Monitor Temp 97.2 F Temp Source Oral Pulse Oximetry (%) 98 Oxygen Delivery Method Room Air Allergies/Home Meds Allergies & Medications Allergies No Known Allergies Allergy (Verified 02/17/25 11:32) Medication Reconciliation vits no.126-ferrous fum 28 mg iron-folic acid 800 mcg tablet (Classic ) tab PO 10/12/24 [History Confirmed 02/17/25] folic acid 0.8 mg capsule 0.8 mg PO QDAY #60 caps 12/17/24 [Rx Confirmed 02/17/25] Immunizations Immunizations Flu Vaccine in the Last 12 Months: No Flu Vaccine Exclusion Criteria: Already Received Care OB Visit Log OB Flowsheet Initial Weight: Not Recorded Date -?-?-?-?-?-?-?-?-?-?-?-?- EGA Weight BP Alb Glu CTX Pres Fundal ht FHR Mov Dilation Station Effacem ent Hx Notes Visit Note 10/12/24 -?-?-?-?-?-?-?-?-?-?-?-?- 16w 0d 62.199 kg 110/73 absent unknown 15 145 active 19-year-old 2 para 1 for OBI. No OB complaints. Reports slight movement. Denies leaking, denies bleeding, denies contractions. Her last period was June 22, 2024. This gave a due date March 29, 2025. OB panel, NIPT, AFP, and A1c today. Discussed labor precautions. Schedule with [facility] for anatomy scan. SAB precautions. Return in 4 weeks OB check 11/16/24 -?-?-?-?-?-?-?-?-?-?-?-?- 21w 0d 62.766 kg 108/70 absent unknown 23 145 active Maternal- medicine pending. Fetus very active. Denies any existence of contractions. Denies leaking, denies bleeding, Discussed labs. Follow-up in maternal- medicine appointment. Discussed labor precautions. R eturn in 4 weeks OB check 12/17/24 -?-?-?-?-?-?-?-?-?-?-?-?- 25w 3d 66.905 kg absent unknown 26 135 act sharad MFM appointment is January 18. Reports movement. Patient had a general physical at [facility].. Her vitamin D is low and she was given vitamin D supplement. Patient positive antibodies for hepatitis A. Hep B and hep C were nonreactive and her CMP normal as well. Reports movement. Denies leaking bleeding contractions. No second trimester discomforts Third trimester labs today follow-up MFM January 18. Discussed labor precautions increase fluids good handwashing especially after using the restroom and preparing food. And return in 4 weeks for OB check 01/13/25 -?-?-?-?-?-?-?-?-?-?--?-?- 29w 2d 68.606 kg 106/68 absent unknown 29 135 active No OB complaints. Reports movement. Denies leaking, bleeding, contractions Tdap today. Third trimester labs were done. Discussed labor precautions. Keep appointment on 18 January with maternal- medicine return in 3 weeks OB check 01/29/25 -?-?-?-?-?-?-?--?-?-?-?-?- 31w 4d 70.307 kg 109/70 absent unknown 32 145 active no ob complaints. fetus active. no leaking,bleeding or contractions. Discussed labor precautions. Kick count twice a day. Increase fluids. Continue prenatals. Discussed dates. Return in 2 weeks OB check JACQUES Calculator Estimated Delivery Date Method Current WG Current Estimate 03/29/25 LMP (Certain) 34w 2d Other Estimates 03/26/25 Ultrasound #1 34w 5d 03/29/25 Manual 34w 2d final jacques: ,efw:33% Notes Visit Date: 01/13/25 Last Updated by: Acacia Nolasco CNM 01/12: 3rd tri lab wnl, , A1: 4.9 Visit Date: 11/16/24 Last Updated by: Acacia Nolasco CNM 10/12: O+,abs-, rpr;;nr, rub imm, hbsag-,hiv-, HC-, GC/CT-, , NIPT-, AFP-, SMA-UT-,UA- Visit Date: 10/12/24 Last Updated by: Acacia Nolasco, OPAL 19 y0 . lmp: 06/22/24. EDC. 03/29/25 Office Procedures OBC Clinic LOC & Office Proc's Nursing/Assessment Patient Status: Established Patient OB Clinic Nursing Assessment: Medication Reconciliation, Update PMH in EMR and Vital Signs OB Clinic Coordination of Care: Complex Care and Chronic Disease 1-5, Consent,records obtained, informed consent, Education Simp Pt/Fam, Lab and Imaging orders, Results/Orders obtained and Staff clarify orders Special Needs: Heart tones Established Patient Charge Established Patient Point Assignment: 135 Established Patient Point Charge: EP Level 4 (120-155) Assessment & Plan Diagnosis / Problem List (1) Encounter for supervision of high risk in third trimester, antepartum: Status: Acute Plan Discussed labor precautions. And precautions. Kick count twice a day. Increase fluids. Return in 2 weeks for GBS
== END 2025-02-17 12:22 | disposition home or self-care (01) ==
LOC: HODSOBC 11:20
PROVIDERS: Supervising Provider Advanced Practice Midwife; Visit Provider Advanced Practice Midwife
DX: O09.93 Supervision of high risk pregnancy, unspecified, third trimester (principal); Z3A.31 31 weeks gestation of pregnancy
CPT/HCPCS: 99214; G0463